=== PATIENT | male | born 1990 | race Two or more races ===

== ENCOUNTER 2019-03-28 15:32 | Emergency (ER) | payer OTHER ==
[2019-03-28] MEDS ORDERED: Lidocaine 1% 50 ML MDV INJECT ONE (15:48)
--- NOTE | 2019-03-28 15:49 | EDM.PDOC ---
ED HPI GENERAL MEDICAL PROBLEM - General Chief Complaint: Upper Extremity Injury/Pain Stated Complaint: THUMB LAC Time Seen by Provider: 03/28/19 15:48 Source of Information: Reports: Patient History Limitations: Reports: No Limitations - History of Present Illness INITIAL COMMENTS - FREE TEXT/NARRATIVE: Patient is a 28-year-old male who presents to the ED complaining of partial amputation of the right thumb. 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 Bleeding was controlled with direct pressure. The nail has been completely torn off per patient. Soft tissue remains hanging from the distal phalanx. Patient does not know if tetanus status up-to-date. Pain is localized with no radiation. He denies any additional complaints. He denies any complaints. Patient last ate at approximately 1:30 today. Right Finger-Thumb Pain Score (Numeric/FACES): 8 - Related Data Allergies Allergy/AdvReac Type Severity Reaction Status Date / Time No Known Allergies Allergy Verified 03/28/19 15:42 Home Meds: Home Meds metFORMIN [Glucophage] 500 mg PO DAILY 03/28/19 [History] Review of Systems - Review of Systems Review Of Systems: ROS reveals no pertinent complaints other than HPI. ED EXAM, GENERAL - Physical Exam Exam: See Below Exam Limited By: No Limitations General Appearance: Alert, WD/WN, No Apparent Distress Nose: Normal Inspection Throat/Mouth: Normal Voice, No Airway Compromise Neck: Normal Inspection, Supple Respiratory/Chest: No Respiratory Distress, No Accessory Muscle Use Cardiovascular: Normal Peripheral Pulses, Regular Rate, Rhythm Peripheral Pulses: 2+: Radial (R) Extremities: Other (Partial amputation of the right thumb distal phalanx. Nail has been completely removed. Amputation extends through the nail bed. Sensation remains in place. Pain is localized with bleeding controlled. Able to flex and extend abduct and adduct at the MCP. Also able to flex and extend at the DIP. No pain with palpation of the remaining phalanges, hand, or wrist.) Neurological: Alert, Oriented, CN II-XII Intact, Normal Cognition, No Motor/ Sensory Deficits Psychiatric: Normal Affect, Normal Mood Skin Exam: Warm, Dry Course - Vital Signs Last Recorded V/S: Last Vital Signs Temp 98.4 F 03/28/19 15:43 Pulse 73 03/28/19 15:43 Resp 16 03/28/19 15:43 BP 135/94 H 03/28/19 15:43 Pulse Ox 100 03/28/19 15:43 - Orders/Labs/Meds Orders: Active Orders 24 hr Category Date Time Status Vaccines to be Administered [RC] PER UNIT ROUTINE Care 03/28/19 16:10 Active Fingers Thumb Rt F5 [CR] Stat Exams 03/28/19 15:48 Taken Meds: Medications Discontinued Medications Generic Name Dose Route Start Last Admin Trade Name Annmarie PRN Reason Stop Dose Admin Cefazolin Sodium 1 gm 03/28/19 16:14 03/28/19 16:32 Ancef IM 03/28/19 16:15 1 gm ONETIME ONE Administration Diphtheria/Tetanus/Acell Pertussis 0.5 ml 03/28/19 16:10 03/28/19 16:28 Adacel IM 03/28/19 16:11 0.5 ml .ONCE ONE Administration Lidocaine HCl 50 ml 03/28/19 15:48 03/28/19 16:00 Xylocaine 1% INJECT 03/28/19 15:49 50 ml ONETIME ONE Administration - Re-Assessments/Exams Free Text/Narrative Re-Assessment/Exam: Right thumb digitally blocked with 1% lidocaine with no complications. Complete anesthesia of the affected digit obtained. With removal of the dressing the nail is gone with extensive laceration to the nailbed. Partial amputation of the thumb with what soft tissue hanging from the thumb with portion of the bone of the distal phalanx present. With a dry dressing applied with 4 x 4's and Kerlix. X-ray of the right thumb will be obtained. I have ordered an Adacel to update his tetanus. I have also ordered ordered 1 g of Ancef. 1612 I have spoken with Dr[address] Ulloa with [facility] on-call [facility] Surgeon at [facility]. Recommended patient go to the [facility] ER where he can look at the affected thumb when he arrives. l Departure - Departure Time of Disposition: 16:10 Disposition: DC/Tfer to Acute Hospital 02 Condition: Good Clinical Impression: Amputation finger Qualifiers: Encounter type: initial encounter Qualified Code(s): S68.119A - Complete traumatic metacarpophalangeal amputation of unspecified finger, initial encounter - Discharge Information Referrals: Rosalio Ulloa MD [Ordering Only Provider] - Forms: ED Department Discharge Additional Instructions: You are to eat or drink anything while en route to [facility] ER. Go to the . [facility] ER in [facility]. Dr. Ulloa Orthopedic Surgeon will see you in the E.D. and make determination for further treatment. Please go directly to the E.D. following discharge. Address: [address] [place] [address] - My Orders Last 24 Hours: My Active Orders 03/28/19 15:48 Fingers Thumb Rt F5 [CR] Stat 03/28/19 16:10 Vaccines to be Administered [RC] PER UNIT ROUTINE - Assessment/Plan Last 24 Hours: My Active Orders 03/28/19 15:48 Fingers Thumb Rt F5 [CR] Stat 03/28/19 16:10 Vaccines to be Administered [RC] PER UNIT ROUTINE
[2019-03-28] MEDS ORDERED: Diphtheria,Pertussis(Acell),Tetanus Vaccine 0.5 ML Syringe IM ONE (16:10)
[2019-03-28] MEDS ORDERED: ceFAZolin 1 GM Vial IM ONE (16:14)
--- NOTE | 2019-03-31 07:17 | CR ---
Right thumb: Three views centered to the right thumb were obtained. Displaced fracture identified within the distal phalanx of the thumb. Soft tissue swelling and soft tissue injury is seen. Fracture is mildly comminuted. No proximal bony abnormality is seen. Impression: 1. Displaced fracture within the distal phalanx of the thumb with mild comminution. 2. Soft tissue swelling and soft tissue injury. Diagnostic code #3
== END 2019-03-28 16:40 ==
LOC: JD.ED 15:32
DX: S68.521A Partial traumatic transphalangeal amputation of right thumb, initial encounter (principal); W23.1XXA Caught, crushed, jammed, or pinched between stationary objects, initial encounter
CPT/HCPCS: 64450; 73140; 90471; 90700; 96372; 99284; J0690; J2001; 99283